=== PATIENT | male | born 1955 | race Caucasian/White ===

== ENCOUNTER → 2016-04-13 | Outpatient (CLI) | payer MEDICARE, BC ==
--- NOTE | 2016-04-13 14:44 | CT ---
EXAMINATION TYPE: CT chest w con DATE OF EXAM: 04/13/2016 2:14 PM COMPARISON: Previous study dated 05/06/2014. HISTORY: Patient has no complaints at time of service. Left upper lobe mass? CT DLP: 641 mGycm Automated exposure control for dose reduction was used. CONTRAST: CT scan of the chest is performed with IV Contrast, patient injected with 100 mL of Omnipaque 300. FINDINGS: There are diffuse changes of emphysema throughout the lungs. The 6.9 x 11.9 mm spiculated m ass in the left upper lobe is virtually resolved with minimal scarring residual. Mass in the left low er lobe measures 10.8 x 18.7 mm. Previously these measured 7 x 14 mm. Small area of spiculation infe rior to this in the posterior medial basal segment of the left lower lobe which previously measured 1 .4 x 7 mm now measures 1.4 x 9 mm. There is calcified granuloma in the left lingula. The right lung appears clear. There is no significant axillary, mediastinal or hilar adenopathy. There are to the aorta is aneurysmal measuring 4.2 cm. At the level of the proximal arch, the aorta m easures 3.8 cm. The proximal descending thoracic aorta measures 3.2 cm. The level of the aortic hiatus, the aorta is normal in caliber measuring 2.8 cm. The heart is not enlarged. There is no pleural or pericardial fluid. There is a stable 16 mm hypodensity within the posterior segment of the right lobe of the liver. Ther e is a simple appearing, 1.3 cm left renal cyst. There is hypertrophic spondylosis within the spine. No bony destructive lesion is seen. IMPRESSION: 1. DIFFUSE EMPHYSEMATOUS CHANGE. 2. RESOLUTION OF THE PATIENT'S LEFT UPPER LOBE PULMONARY NODULE. 3. SLIGHT ENLARGEMENT IN THE SPICULATED LESION IN THE SUPERIOR SEGMENT OF THE LEFT UPPER LOBE. 4. STABLE LESION IN THE POSTERIOR MEDIAL BASAL SEGMENT OF THE LEFT LOWER LOBE. 5. EVIDENCE OF OLD GRANULOMATOUS DISEASE. 6. STABLE HEPATIC CYST. 7. DESCENDING THORACIC AORTIC ANEURYSM. 8. DEGENERATIVE CHANGE WITHIN THE SPINE.
== END | disposition home or self-care (01) ==
LOC: RADCTMAIN 13:13
PROVIDERS: ATTEND Internal Medicine Critical Care Medicine
DX: J43.9 Emphysema, unspecified (principal); I71.2 Thoracic aortic aneurysm, without rupture; R91.8 Other nonspecific abnormal finding of lung field
CPT/HCPCS: 71260; Q9967

== ENCOUNTER → 2016-08-10 | Outpatient (CLI) | payer MEDICARE, BC ==
[2016-08-10 14:30] LABS: ALT 25 U/L (21-72); AST 26 U/L (17-59); Alkaline Phosphatase 79 U/L (38-126); Blood Urea Nitrogen 14 mg/dL (9-20); Non-African American GFR(MDRD) >60 (>60 ml/min/1.73 sqM)
== END | disposition home or self-care (01) ==
LOC: LABWHC1 13:45
PROVIDERS: ATTEND Pain Medicine Pain Medicine
DX: K71.6 Toxic liver disease with hepatitis, not elsewhere classified (principal)
CPT/HCPCS: 36415; 82565; 84075; 84450; 84460; 84520

== ENCOUNTER 2017-01-01 12:53 | Inpatient (IN) | payer MEDICARE, BC ==
[2017-01-01] MEDS ORDERED: SODIUM CHLORIDE 0.9% 1,000 ML IV STA (13:26)
[2017-01-01] MEDS ORDERED: IPRATROPIUM-ALBUTEROL 3 ML NEB INHALATION STA (13:26)
[2017-01-01] MEDS ORDERED: SODIUM CHLORIDE 0.9% 500 ML IV STA (13:26)
[2017-01-01] MEDS ORDERED: methylPREDNISolone SOD SUCCI 125 MG/2 ML VIAL IV STA (13:26)
[2017-01-01] MEDS ORDERED: MAGNESIUM SULFATE-D5W PMX 1 GM in DEXTROSE/WATER 1 100ML.BAG IVPB STA (13:26)
--- NOTE | 2017-01-01 13:38 | ED ---
SOB HPI - General Chief Complaint: Shortness of Breath Stated Complaint: Diff Breathing Time Seen by Provider: 01/01/17 13:00 Source: patient, RN notes reviewed Mode of arrival: wheelchair Limitations: no limitations - History of Present Illness Initial Comments: Is a 61-year-old male with a history of stage IV emphysema the lungs who states he had the onset about 3 days ago of progressively worsening shortness of breath he's had some fever chills decreased appetite. He was on Robitussin-DM outpatient he states now he coughs and can't get anything up he normally has saturations in the mid 90s on oxygen he is been now in the 80s. He denies any overt chest pain no nausea vomiting he just feels very weak and tired. He relates all this starting when his son came home from work 3 days ago and he was very ill with flulike symptoms. He did contact his nuclear security officer today was instructed to come to the emergency department for evaluation and treatment. MD Complaint: shortness of breath - Related Data Home Medications Medication Instructions Recorded Confirmed Fluticasone/Salmeterol [Advair 1 inhalation PO RT-BID 09/08/15 01/01/17 500-50 Diskus] Ipratropium/Albuterol Sulfate 1 puff INHALATION RT-QID 09/08/15 01/01/17 [Combivent Respimat Inhaler] Levothyroxine Sodium [Synthroid] 50 mcg PO DAILY 09/08/15 01/01/17 Losartan/Hydrochlorothiazide 1 tab PO DAILY 09/08/15 01/01/17 [Hyzaar 100-25 Tablet] Oxymorphone HCl [Oxymorphone HCl 60 mg PO Q12HR 09/08/15 01/01/17 ER] Sennosides [Senokot] 8.6 mg PO HS 09/08/15 01/01/17 clonazePAM [KlonoPIN] 0.5 mg PO HS 09/08/15 01/01/17 oxyCODONE HCL [Roxicodone] 30 mg PO Q6HR PRN 09/08/15 01/01/17 predniSONE 10 mg PO DAILY 09/08/15 01/01/17 DULoxetine HCL [Cymbalta] 60 mg PO BID 01/01/17 01/01/17 Gabapentin [Gabapentin] 1,600 mg PO HS 01/01/17 01/01/17 Gabapentin [Gabapentin] 800 mg PO QAM 01/01/17 01/01/17 Ipratropium-Albuterol Nebulize 3 ml INHALATION RT-QID 01/01/17 01/01/17 [Duoneb 0.5 mg-3 mg/3 ml Soln] clonazePAM [KlonoPIN] 0.5 mg PO HS 01/01/17 01/01/17 Allergies Allergy/AdvReac Type Severity Reaction Status Date / Time No Known Allergies Allergy Verified 01/01/17 14:37 Review of Systems ROS Statement: Those systems with pertinent positive or pertinent negative responses have been documented in the HPI. ROS Other: All systems not noted in ROS Statement are negative. 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 pt did not want to do anything about mass when found in April 2015) lack of energy and SOB, use of Home O2 5L/nc History of Any Multi-Drug Resistant Organisms: None Reported Past Surgical History: Back Surgery, Orthopedic Surgery Additional Past Surgical History / Comment(s): right shoulder repair Smoking Status: Current every day smoker Past Alcohol Use History: None Reported Past Drug Use History: None Reported - Past Family History Father Family Medical History: COPD Mother Family Medical History: COPD General Exam - General Exam Comments Initial Comments: This is a well-developed well-nourished awake alert oriented history male he is in obvious respiratory distress with audible wheezing Limitations: no limitations General appearance: alert, in no apparent distress, anxious, in distress Head exam: Present: atraumatic, normocephalic, normal inspection Eye exam: Present: normal appearance, PERRL, EOMI. Absent: scleral icterus, conjunctival injection, periorbital swelling ENT exam: Present: mucous membranes dry Neck exam: Present: normal inspection. Absent: tenderness, meningismus, lymphadenopathy Respiratory exam: Present: respiratory distress, wheezes, accessory muscle use, decreased breath sounds Cardiovascular Exam: Present: regular rate, normal rhythm, normal heart sounds. Absent: systolic murmur, diastolic murmur, rubs, gallop, clicks GI/Abdominal exam: Present: soft, normal bowel sounds. Absent: distended, tenderness, guarding, rebound, rigid Extremities exam: Present: normal inspection, full ROM, normal capillary refill. Absent: tenderness, pedal edema, joint swelling, calf tenderness Back exam: Present: normal inspection Neurological exam: Present: alert, oriented X3, CN II-XII intact Psychiatric exam: Present: normal affect, normal mood Skin exam: Present: warm, dry, intact, normal color. Absent: rash Course Vital Signs 01/01/17 01/01/17 01/01/17 12:56 13:20 13:41 Temperature 100.1 F H Pulse Rate 100 99 90 Respiratory 24 16 Rate Blood Pressure 128/74 141/89 O2 Sat by Pulse 93 L 95 Oximetry 01/01/17 01/01/17 01/01/17 13:50 14:19 15:10 Temperature Pulse Rate 94 88 82 Respiratory 16 16 Rate Blood Pressure 129/77 124/77 O2 Sat by Pulse 95 95 Oximetry 01/01/17 15:26 Temperature Pulse Rate 101 H Respiratory 20 Rate Blood Pressure 116/76 O2 Sat by Pulse 84 L Oximetry - Reevaluation(s) Reevaluation #1: 01/01/17 15:30 The patient did get some relief after the initial treatment he did however did not fair well with walking he did desaturate to 84-85% was elevated heart rate up to about 1:30. He is very dyspneic after this short event. He will be admitted Medical Decision Making - Medical Decision Making I did discuss the findings with the patient he is profoundly dyspneic after minimal exertion even after initial treatment though he does feel better. He will be admitted for inpatient treatment and consultation by his nuclear security officer. I will discuss the case with the hospitalist group on-call. - Lab Data Result diagrams: 01/01/17 13:16 01/01/17 13:16 Lab Results 01/01/17 01/01/17 01/01/17 Range/Units 13:16 13:16 13:16 WBC 10.4 (3.8-10.6) k/uL RBC 5.13 (4.30-5.90) m/uL Hgb 15.2 (13.0-17.5) gm/dL Hct 46.8 (39.0-53.0) % MCV 91.2 (80.0-100.0) fL MCH 29.7 (25.0-35.0) pg MCHC 32.6 (31.0-37.0) g/dL RDW 15.6 H (11.5-15.5) % Plt Count 313 (150-450) k/uL Neutrophils % 81 % Lymphocytes % 11 % Monocytes % 5 % Eosinophils % 2 % Basophils % 0 % Neutrophils # 8.5 H (1.3-7.7) k/uL Lymphocytes # 1.1 (1.0-4.8) k/uL Monocytes # 0.5 (0-1.0) k/uL Eosinophils # 0.2 (0-0.7) k/uL Basophils # 0.0 (0-0.2) k/uL PT (9.0-12.0) sec INR (<1.2) APTT (22.0-30.0) sec Sodium 138 (137-145) mmol/L Potassium 4.2 (3.5-5.1) mmol/L Chloride 97 L (98-107) mmol/L Carbon Dioxide 31 H (22-30) mmol/L Anion Gap 10 mmol/L BUN 12 (9-20) mg/dL Creatinine 0.83 (0.66-1.25) mg/dL Est GFR (MDRD) Af Amer >60 (>60 ml/min/1.73 sqM) Est GFR (MDRD) Non-Af >60 (>60 ml/min/1.73 sqM) Glucose 118 H (74-99) mg/dL Calcium 9.7 (8.4-10.2) mg/dL Magnesium 1.9 (1.6-2.3) mg/dL Total Bilirubin 0.3 (0.2-1.3) mg/dL AST 28 (17-59) U/L ALT 32 (21-72) U/L Alkaline Phosphatase 73 (38-126) U/L Total Creatine Kinase 89 (55-170) U/L CK-MB (CK-2) 1.9 (0.0-2.4) ng/mL CK-MB (CK-2) Rel Index 2.1 Troponin I <0.012 (0.000-0.034) ng/mL NT-Pro-B Natriuret Pep pg/mL Total Protein 7.6 (6.3-8.2) g/dL Albumin 4.5 (3.5-5.0) g/dL Influenza Type A RNA (Not Detectd) Influenza Type B (PCR) (Not Detectd) 01/01/17 01/01/17 01/01/17 Range/Units 13:16 13:16 14:12 WBC (3.8-10.6) k/uL RBC (4.30-5.90) m/uL Hgb (13.0-17.5) gm/dL Hct (39.0-53.0) % MCV (80.0-100.0) fL MCH (25.0-35.0) pg MCHC (31.0-37.0) g/dL RDW (11.5-15.5) % Plt Count (150-450) k/uL Neutrophils % % Lymphocytes % % Monocytes % % Eosinophils % % Basophils % % Neutrophils # (1.3-7.7) k/uL Lymphocytes # (1.0-4.8) k/uL Monocytes # (0-1.0) k/uL Eosinophils # (0-0.7) k/uL Basophils # (0-0.2) k/uL PT 10.0 (9.0-12.0) sec INR 1.0 (<1.2) APTT 23.3 (22.0-30.0) sec Sodium (137-145) mmol/L Potassium (3.5-5.1) mmol/L Chloride (98-107) mmol/L Carbon Dioxide (22-30) mmol/L Anion Gap mmol/L BUN (9-20) mg/dL Creatinine (0.66-1.25) mg/dL Est GFR (MDRD) Af Amer (>60 ml/min/1.73 sqM) Est GFR (MDRD) Non-Af (>60 ml/min/1.73 sqM) Glucose (74-99) mg/dL Calcium (8.4-10.2) mg/dL Magnesium (1.6-2.3) mg/dL Total Bilirubin (0.2-1.3) mg/dL AST (17-59) U/L ALT (21-72) U/L Alkaline Phosphatase (38-126) U/L Total Creatine Kinase (55-170) U/L CK-MB (CK-2) (0.0-2.4) ng/mL CK-MB (CK-2) Rel Index Troponin I (0.000-0.034) ng/mL NT-Pro-B Natriuret Pep 34 pg/mL Total Protein (6.3-8.2) g/dL Albumin (3.5-5.0) g/dL Influenza Type A RNA Not Detected (Not Detectd) Influenza Type B (PCR) Not Detected (Not Detectd) - EKG Data -: EKG Interpreted by In EKG shows normal: sinus rhythm (Sinus rhythm rate of 98 WI interval 144 QRS 82 QT since QTC of 322/411 nonspecific changes.) - Radiology Data Radiology results: report reviewed (Imaging shows no acute findings.), image reviewed Critical Care Time Critical Care Time: Yes Critical Care Time: 31 minutes of critical care time which includes initial presentation with history physical labs x-rays several re-evaluations the patient responsive therapy discussion with the admitting physicians as. Review of old charting was available. Inpatient orders and documentation of the above. Disposition Clinical Impression: Acute exacerbation of chronic obstructive airways disease, Adult respiratory distress syndrome, Hypoxemia, Febrile illness, acute Disposition: ADMITTED IP TO THIS HOSP Condition: Stable Referrals: Melva Bear MD [Primary Care Provider] - 1-2 days
[2017-01-01 13:47] LABS: Basophils % (A) 0 %; CH 29.5; CHCM 32.5; Eosinophils # (A) 0.2 k/uL (0-0.7); Eosinophils % (A) 2 %; HCT 46.8 % (39.0-53.0); HDW 2.32; HGB 15.2 gm/dL (13.0-17.5); Luc # (Auto) 0.08; Luc % (Auto) 1; Lymphocytes # (A) 1.1 k/uL (1.0-4.8); Lymphocytes % (A) 11 %; MCH 29.7 pg (25.0-35.0); MCHC 32.6 g/dL (31.0-37.0); MCV 91.2 fL (80.0-100.0); Mean Platelet Volume 7.4; Monocytes # (A) 0.5 k/uL (0-1.0); Monocytes % (A) 5 %; Neutrophils # (A) 8.5 k/uL (1.3-7.7); Neutrophils % (A) 81 %; RBC 5.13 m/uL (4.30-5.90); RDW 15.6 % (11.5-15.5); WBC 10.4 k/uL (3.8-10.6); WBC (Perox) 10.49
[2017-01-01 13:50] LABS: ALT 32 U/L (21-72); AST 28 U/L (17-59); Alkaline Phosphatase 73 U/L (38-126); Anion Gap 10 mmol/L; Blood Urea Nitrogen 12 mg/dL (9-20); Calcium 9.7 mg/dL (8.4-10.2); Carbon Dioxide 31 mmol/L (22-30); Chloride 97 mmol/L (98-107); Glucose 118 mg/dL (74-99); Magnesium 1.9 mg/dL (1.6-2.3); Non-African American GFR(MDRD) >60 (>60 ml/min/1.73 sqM); Potassium 4.2 mmol/L (3.5-5.1); Sodium 138 mmol/L (137-145); Total Bilirubin 0.3 mg/dL (0.2-1.3); Total Protein 7.6 g/dL (6.3-8.2)
[2017-01-01 13:54] LABS: Partial Thromboplastin Time 23.3 sec (22.0-30.0)
[2017-01-01 13:56] LABS: Creatine Kinase 89 U/L (55-170)
[2017-01-01 14:09] LABS: Creatine Kinase MB 1.9 ng/mL (0.0-2.4); Troponin I <0.012 ng/mL (0.000-0.034)
--- NOTE | 2017-01-01 14:22 | XR ---
EXAMINATION TYPE: XR chest 2V DATE OF EXAM: 01/01/2017 COMPARISON: 03/15/2016 HISTORY: Shortness of breath TECHNIQUE: Frontal and lateral views of the chest are obtained. FINDINGS: Scattered senescent parenchymal changes noted. Hyperinflation compatible with COPD. No evidence for infiltrate. No evidence for atelectasis. Heart size is stable. Granuloma left lower lobe. Mediastinal structures are stable and grossly unremarkable. No evidence for hilar prominence. Degenerative changes dorsal spine. IMPRESSION: 1. No evidence for acute pulmonary disease.
[2017-01-01] MEDS ORDERED: NALOXONE 0.4 MG/ML 1 ML VIAL IV PRN ×2 (15:41→17:34)
[2017-01-01] MEDS ORDERED: SODIUM CHLORIDE 0.9% 1,000 ML IV SCH (15:45)
[2017-01-01] MEDS ORDERED: IPRATROPIUM-ALBUTEROL 3 ML NEB INHALATION SCH (16:00)
[2017-01-01] MEDS: NICOTINE 21MG/24HR PATCH TRANSDERM SCH (16:12)
[2017-01-01] MEDS: OXYMORPHONE HCL 5 MG TABLET PO SCH ×2 (16:44→21:39)
[2017-01-01] MEDS: methylPREDNISolone SOD SUCCI 125 MG/2 ML VIAL IV SCH ×2 (16:45→23:53)
[2017-01-01] MEDS ORDERED: ACETAMINOPHEN TAB 325 MG TAB PO PRN (17:34)
[2017-01-01] MEDS ORDERED: ONDANSETRON 4 MG/2 ML VIAL IVP PRN (17:34)
[2017-01-01] MEDS: INSULIN LISPRO (humaLOG) 300 UNIT/3 ML VIAL SQ SCH ×2 (17:45→21:41)
[2017-01-01] MEDS: SODIUM CHLORIDE 0.9% 1,000 ML IV SCH (17:51)
[2017-01-01] MEDS ORDERED: IPRATROPIUM-ALBUTEROL 3 ML NEB INHALATION PRN (18:00)
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
[2017-01-01] MEDS: IPRATROPIUM-ALBUTEROL 3 ML NEB INHALATION SCH (19:42)
[2017-01-01] MEDS: SYMBICORT 160-4.5 MCG INHALER INHALATION SCH (19:42)
[2017-01-01] MEDS: DOXYCYCLINE 50 MG CAP PO SCH (20:22)
[2017-01-01] MEDS: SENNOSIDES 8.6 MG TAB PO SCH (20:22)
[2017-01-01] MEDS: GABAPENTIN 400 MG CAP PO SCH (20:22)
[2017-01-01] MEDS: DULoxetine HCL 60 MG CAPSULE.DR PO SCH (20:22)
[2017-01-01 20:54] LABS: Glucose,Whole Blood 130 mg/dL (75-99)
[2017-01-01] MEDS ORDERED: clonazePAM 0.5 MG TAB PO SCH (21:00)
[2017-01-01] MEDS: clonazePAM 0.5 MG TAB PO SCH (21:41)
[2017-01-02] MEDS: IPRATROPIUM-ALBUTEROL 3 ML NEB INHALATION SCH ×6 (01:15→19:20)
[2017-01-02] MEDS: OXYMORPHONE HCL 5 MG TABLET PO SCH ×6 (05:22→20:07)
[2017-01-02] MEDS: methylPREDNISolone SOD SUCCI 125 MG/2 ML VIAL IV SCH ×3 (06:01→18:04)
[2017-01-02] MEDS: LEVOTHYROXINE 50 MCG TAB PO SCH (06:01)
[2017-01-02 07:04] LABS: Glucose,Whole Blood 113 mg/dL (75-99)
[2017-01-02] MEDS: SYMBICORT 160-4.5 MCG INHALER INHALATION SCH ×2 (07:05→19:20)
[2017-01-02] MEDS: INSULIN LISPRO (humaLOG) 300 UNIT/3 ML VIAL SQ SCH ×4 (07:27→21:12)
[2017-01-02] MEDS: NICOTINE 21MG/24HR PATCH TRANSDERM SCH (07:51)
[2017-01-02] MEDS: DULoxetine HCL 60 MG CAPSULE.DR PO SCH ×2 (07:51→21:10)
[2017-01-02] MEDS: DOXYCYCLINE 50 MG CAP PO SCH ×2 (07:52→21:10)
[2017-01-02] MEDS: LOSARTAN-HCTZ 50-12.5 MG 1 EACH TAB PO SCH (07:52)
[2017-01-02] MEDS: ENOXAPARIN 40 MG/0.4 ML SYRINGE SQ SCH (07:52)
[2017-01-02] MEDS: GABAPENTIN 400 MG CAP PO SCH ×2 (07:52→21:09)
[2017-01-02 08:35] LABS: Basophils % (A) 0 %; CHCM 31.8; Eosinophils # (A) 0.1 k/uL (0-0.7); Eosinophils % (A) 1 %; HCT 47.5 % (39.0-53.0); HDW 2.33; HGB 15.4 gm/dL (13.0-17.5); Luc # (Auto) 0.05; Luc % (Auto) 0; Lymphocytes # (A) 1.3 k/uL (1.0-4.8); Lymphocytes % (A) 9 %; MCH 30.6 pg (25.0-35.0); MCHC 32.4 g/dL (31.0-37.0); MCV 94.7 fL (80.0-100.0); Monocytes # (A) 0.8 k/uL (0-1.0); Monocytes % (A) 6 %; Neutrophils # (A) 11.7 k/uL (1.3-7.7); Neutrophils % (A) 84 %; RBC 5.02 m/uL (4.30-5.90); RDW 13.9 % (11.5-15.5); WBC (Perox) 12.63
[2017-01-02 08:51] LABS: Anion Gap 7 mmol/L; Blood Urea Nitrogen 17 mg/dL (9-20); Calcium 9.2 mg/dL (8.4-10.2); Carbon Dioxide 33 mmol/L (22-30); Chloride 99 mmol/L (98-107); Glucose 119 mg/dL (74-99); Magnesium 2.1 mg/dL (1.6-2.3); Non-African American GFR(MDRD) >60 (>60 ml/min/1.73 sqM); Phosphorus 4.2 mg/dL (2.5-4.5); Potassium 4.9 mmol/L (3.5-5.1); Sodium 139 mmol/L (137-145)
[2017-01-02] MEDS ORDERED: LEVOFLOXACIN 500 MG TAB PO SCH (09:00)
--- NOTE | 2017-01-02 10:56 | P.PN ---
Subjective Progress Note Date: 01/02/17 Principal diagnosis: Shortness of breath The patient is still feeling tight in the chest, he feels that secretions stuck in his chest and he cannot bring them up. No chest pain, no fevers or chills. He has not tried to walk out of bed as of yet. Objective - Vital Signs Vital signs: Vital Signs Temp 97.0 F L 01/02/17 07:00 Pulse 80 01/02/17 07:19 Resp 18 01/02/17 07:00 BP 120/71 01/02/17 07:00 Pulse Ox 96 01/02/17 07:08 Intake & Output 01/01/17 01/02/17 01/02/17 18:59 06:59 18:59 Weight 83.915 kg Other: Voiding Method Toilet # Voids 1 1 1 - Exam Constitutional: No acute distress, conversant, pleasant Eyes:Anicteric sclerae, moist conjunctiva, no lid-lag, PERRLA, ENMT: Oropharynx clear, no erythema, exudates Neck: Supple, FROM, no masses, or JVD, No carotid bruits, No thyromegaly Lungs: Bilateral wheezing and rhonchi, diminished breath sounds towards the chest, Normal respiratory effort, no accessory muscle use Cardiovascular: Heart regular in rate and rhythm, No murmurs, gallops, or rubs, No peripheral edema Abdominal: Soft, Nontender, no guarding, rebound or rigidity, Normoactive bowel sounds, No hepatomegaly, No splenomegaly, No palpable mass Skin: Normal temperature, tone, texture, turgor, no induration, No subcutaneous nodules, No rash, lesions, No ulcers Extremities: No digital cyanosis, No clubbing, Pedal pulses intact and symmetrical, Radial pulses intact and symmetrical, No calf tenderness Psychiatric: Alert and oriented to person, place and time, appropriate affect, intact judgement Neuro: Muscles Strength 5/5 in all 4 extremities, Sensation to light touch grossly present throughout, Cranial nerves II-XII grossly intact, no focal sensory deficits - Labs CBC & Chem 7: 01/02/17 08:07 01/02/17 08:07 Labs: Abnormal Lab Results - Last 24 Hours (Table) 01/01/17 01/01/17 01/01/17 Range/Units 13:16 13:16 20:49 WBC (3.8-10.6) k/uL RDW 15.6 H (11.5-15.5) % Neutrophils # 8.5 H (1.3-7.7) k/uL Chloride 97 L (98-107) mmol/L Carbon Dioxide 31 H (22-30) mmol/L Glucose 118 H (74-99) mg/dL POC Glucose (mg/dL) 130 H (75-99) mg/dL 01/02/17 01/02/17 01/02/17 Range/Units 07:01 08:07 08:07 WBC 14.0 H (3.8-10.6) k/uL RDW (11.5-15.5) % Neutrophils # 11.7 H (1.3-7.7) k/uL Chloride (98-107) mmol/L Carbon Dioxide 33 H (22-30) mmol/L Glucose 119 H (74-99) mg/dL POC Glucose (mg/dL) 113 H (75-99) mg/dL Assessment and Plan Plan: #1 Acute exacerbation of chronic obstructive pulmonary disease/acute hypoxic respiratory failure/Acute bronchitis: Supplemental oxygen to keep O2 saturation above 90% Contine DuoNeb every 6 hours and every 2 hours when necessary Continue Solu-Medrol 60 mg every 6 hours Continue Doxycycline 100 mg by mouth twice a day Pro-calcitonin pending Labs reviewed, we'll recheck in the morning #2 Hypothyroidism/Benign hypertension/Chronic back pain/GERD: All stable, continue current home medications #3 Smoking: Counseled to quit Nicotine patch #4 DVT prophylaxis: Lovenox subcu
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
[2017-01-02 11:15] VITALS: BMI 28.1
[2017-01-02 11:29] LABS: Glucose,Whole Blood 91 mg/dL (75-99)
[2017-01-02] MEDS: guaiFENesin-Coden 100-10MG/5ML 10 ML CUP PO SCH ×3 (11:40→21:30)
[2017-01-02] MEDS: ACETYLCYSTEINE 800 MG/4 ML VIAL INHALATION SCH ×2 (15:47→19:20)
[2017-01-02] MEDS: SODIUM CHLORIDE 0.9% 1,000 ML IV SCH (17:03)
[2017-01-02 17:17] LABS: Glucose,Whole Blood 123 mg/dL (75-99)
[2017-01-02 20:35] LABS: Glucose,Whole Blood 161 mg/dL (75-99)
[2017-01-02] MEDS: SENNOSIDES 8.6 MG TAB PO SCH (21:10)
[2017-01-02] MEDS: clonazePAM 0.5 MG TAB PO SCH (21:23)
[2017-01-03] MEDS: IPRATROPIUM-ALBUTEROL 3 ML NEB INHALATION SCH ×4 (00:17→12:05)
[2017-01-03] MEDS: methylPREDNISolone SOD SUCCI 125 MG/2 ML VIAL IV SCH ×3 (01:05→11:15)
[2017-01-03] MEDS: OXYMORPHONE HCL 5 MG TABLET PO SCH ×3 (01:05→07:29)
[2017-01-03] MEDS: LEVOTHYROXINE 50 MCG TAB PO SCH (06:36)
[2017-01-03 07:23] LABS: Glucose,Whole Blood 110 mg/dL (75-99)
[2017-01-03] MEDS: INSULIN LISPRO (humaLOG) 300 UNIT/3 ML VIAL SQ SCH ×2 (07:28→11:48)
[2017-01-03 07:43] VITALS: BP 121/65; RESP 16; TEMP 97.3
[2017-01-03] MEDS: ACETYLCYSTEINE 800 MG/4 ML VIAL INHALATION SCH ×2 (08:01→12:05)
[2017-01-03] MEDS: SYMBICORT 160-4.5 MCG INHALER INHALATION SCH (08:02)
[2017-01-03 08:07] VITALS: PULSE 88
[2017-01-03] MEDS: NICOTINE 21MG/24HR PATCH TRANSDERM SCH (08:25)
[2017-01-03] MEDS: guaiFENesin-Coden 100-10MG/5ML 10 ML CUP PO SCH (08:25)
[2017-01-03] MEDS: LOSARTAN-HCTZ 50-12.5 MG 1 EACH TAB PO SCH (08:25)
[2017-01-03] MEDS: ENOXAPARIN 40 MG/0.4 ML SYRINGE SQ SCH (08:27)
[2017-01-03] MEDS: DOXYCYCLINE 50 MG CAP PO SCH (08:27)
[2017-01-03] MEDS: DULoxetine HCL 60 MG CAPSULE.DR PO SCH (08:27)
[2017-01-03] MEDS: GABAPENTIN 400 MG CAP PO SCH (08:27)
[2017-01-03 09:20] LABS: Basophils % (A) 0 %; CH 30.2; CHCM 31.7; Eosinophils # (A) 0.1 k/uL (0-0.7); Eosinophils % (A) 1 %; HCT 47.2 % (39.0-53.0); HDW 2.28; HGB 14.5 gm/dL (13.0-17.5); Luc # (Auto) 0.06; Luc % (Auto) 0; Lymphocytes # (A) 0.9 k/uL (1.0-4.8); Lymphocytes % (A) 6 %; MCH 29.5 pg (25.0-35.0); MCHC 30.8 g/dL (31.0-37.0); MCV 95.7 fL (80.0-100.0); Mean Platelet Volume 6.7; Monocytes # (A) 0.4 k/uL (0-1.0); Monocytes % (A) 3 %; Neutrophils # (A) 12.5 k/uL (1.3-7.7); Neutrophils % (A) 89 %; RBC 4.93 m/uL (4.30-5.90); RDW 14.1 % (11.5-15.5); WBC 14.1 k/uL (3.8-10.6); WBC (Perox) 14.11
[2017-01-03 09:33] LABS: Anion Gap 11 mmol/L; Blood Urea Nitrogen 17 mg/dL (9-20); Calcium 9.6 mg/dL (8.4-10.2); Carbon Dioxide 29 mmol/L (22-30); Chloride 99 mmol/L (98-107); Glucose 172 mg/dL (74-99); Non-African American GFR(MDRD) >60 (>60 ml/min/1.73 sqM); Potassium 4.3 mmol/L (3.5-5.1); Sodium 139 mmol/L (137-145)
[2017-01-03] MEDS ORDERED: MELATONIN 5 MG TABLET PO PRN (09:33)
[2017-01-03] MEDS ORDERED: DOCUSATE 100 MG CAP PO SCH (09:45)
--- NOTE | 2017-01-03 10:16 | P.PN ---
Subjective Progress Note Date: 01/03/17 Principal diagnosis: Acute on chronic hypoxic respiratory failure due to COPD exacerbation with tracheobronchitis. This is a 61-year-old white male follows with Dr. Villatoro in our office for his history severe oxygen dependent COPD, GOLD stage IV. His last PFT from 2015 showed FEV1 of 24% of predicted value, and DLCO of 39, consistent with severe airway obstruction and reduced diffusing capacity. Presented to the emergency room on 01/01/2017 at approximately 1 PM with complaints of severe worsening shortness of breath, chest tightness, fever and chills and generalized weakness. His symptoms started during the weekend, he progressively worse. Did have a sick contact, his son has upper respiratory symptoms were about a week. Patient continues to smoke, but 10-12 cigarettes a day, carries a 48-[id number] smoking history. Patient was initially able to bring up some white phlegm, complaining of chest congestion, took some Robitussin-DM which subsequently dried out his secretions and made it difficult for for him to expectorate. He called Dr Villatoro's office, and due to his severe hypoxia, respiratory distress was told to come to the emergency room. On presentation to the emergency room, pulse oximetry revealed O2 saturations in the 80s. Chest x-ray from 01/01/2017 shows no evidence of of infiltrate or any other acute pulmonary disease. Influenza A and B came back negative. He was started on doxycycline, DuoNeb's and Symbicort as well as IV steroids, and he reports significant improvement in his level of dyspnea today. Of note, patient history of a suspicious lesion in the left upper lobe has been followed by Dr. Villatoro for some time, however biopsy was difficult to perform due to to patient's severe COPD. PET scan on 09/25/2015 no convincing evidence of malignancy and slightly more prominent sub-centimeter spiculated nodule in the left lower lung. Follow-up CT from 04/13/2016 showed resolution of the patient' s left upper lobe pulmonary nodule right enlargement in the spiculated lesion in the superior segment of the left upper lobe. It was agreed to continue watching the lesion with CAT scans. Patient is currently on Advair discus 500/ 50, DuoNeb, Combivent respimat, and maintenance dose prednisone 10 mg daily for his COPD. He wears a Trilogy ventilator at night, with 4 L of oxygen. Patient has severe chronic back pain elated to generative disc disease, but he is not a surgical candidate due to his severe lung disease. Being treated medically by a pain specialist in [place]. Requesting information on hospice, as it is difficult for him to manage multiple doctors appointments due to his severe chronic health problems, and he is hoping to be able to achieve better pain control under the hospice care. On 01/03/2017 patient seen in follow-up. States he could not fall asleep last night, thinks this may be due to steroids. Appears tired, but no signs of worsening dyspnea. Breathing is comfortable at rest, continues on 4 L oxygen with O2 sat at 91%. Lung sounds diminished, but no wheezes noted. No rhonchi, no rales. From pulmonary standpoint he stable for discharge today on outpatient course of doxycycline, nebulized treatments and Symbicort. Objective - Vital Signs Vital signs: Vital Signs Temp 97.3 F L 01/03/17 07:00 Pulse 88 01/03/17 08:23 Resp 16 01/03/17 07:00 BP 121/65 01/03/17 07:00 Pulse Ox 91 L 01/03/17 07:00 Intake & Output 01/02/17 01/03/17 01/03/17 18:59 06:59 18:59 Intake Total 600 Balance 600 Weight 83.915 kg Intake: Oral 600 Other: Voiding Method Toilet Toilet # Voids 2 2 - Exam GENERAL EXAM: Alert, active, comfortable in no apparent distress. HEAD: Normocephalic. EYES: Normal reaction of pupils, equal size. NOSE: Clear with pink turbinates. THROAT: No erythema or exudates. NECK: No masses, no JVD. CHEST: No chest wall deformity. LUNGS: Lung sounds diminished, no wheezes, no rhonchi no rales. CVS: S1 and S2 normal with no audible mumurs, regular rhythm. ABDOMEN: No hepatosplenomegaly, normal bowel sounds, no guarding or rigidity. SPINE: No scoliosis or deformity SKIN: No rashes CENTRAL NERVOUS SYSTEM: No focal deficits, tone is normal in all 4 extremities. - Labs CBC & Chem 7: 01/03/17 09:07 01/03/17 09:07 Labs: Abnormal Lab Results - Last 24 Hours (Table) 01/02/17 01/02/17 01/03/17 Range/Units 17:13 20:31 07:02 WBC (3.8-10.6) k/uL MCHC (31.0-37.0) g/dL Neutrophils # (1.3-7.7) k/uL Lymphocytes # (1.0-4.8) k/uL Glucose (74-99) mg/dL POC Glucose (mg/dL) 123 H 161 H 110 H (75-99) mg/dL 01/03/17 01/03/17 Range/Units 09:07 09:07 WBC 14.1 H (3.8-10.6) k/uL MCHC 30.8 L (31.0-37.0) g/dL Neutrophils # 12.5 H (1.3-7.7) k/uL Lymphocytes # 0.9 L (1.0-4.8) k/uL Glucose 172 H (74-99) mg/dL POC Glucose (mg/dL) (75-99) mg/dL Microbiology - Last 24 Hours (Table) 01/01/17 13:16 Blood Culture - Preliminary Blood No Growth after 24 hours Assessment and Plan Plan: Assessment: #1. Acute on chronic hypoxic respiratory failure due to COPD exacerbation with tracheobronchitis #2. Severe end-stage COPD, GOLD stage IV, with FEV1 24% of the predicted value and DLCO of 39 based on PFT from 01/13/2016, oxygen dependent chronic respiratory failure, uses Trilogy ventilator at bedtime and supplemental oxygen at 4 L/m per nasal cannula during the day. #3. History of asthma #4. History of Left upper lobe suspicious mass with pulmonary nodules, PET scan 09/25/2015 negative for convincing evidence of malignancy. Subcentimeter speculated nodules in the left lower lung are being monitored by CT scans by the primary educational speech language clinician Dr. Villatoro every 3-[address] of chest from showed resolution of the left upper lobe pulmonary nodule and slight enlargement in the speculated lesion in the superior segment of the left upper lobe, as well as stable lesion in the posterior medial basal segment of the left lower lobe. #5. Chronic severe back pain due to degenerative disc disease, currently in pain management and treated medically. Not a surgical candidate due to advanced lung disease #6. Gastroesophageal reflux disease #7. Hypertension #8. Hypothyroidism allograft #9. Osteoarthritis Plan: Patient is doing well, lung sounds are diminished but no wheezing, no rhonchi or rales auscultated. Patient is able to go home today from pulmonary standpoint on outpatient course of prednisone taper, Doxycycline, Symbicort and DuoNeb. Has significantly improved since admission. Increase activity as tolerated on portable oxygen. Follow-up with Dr. Villatoro in 10 days. I performed a history & physical examination of the patient and discussed their management with my nurse practitioner, Alyssa Alexis. I reviewed the nurse practitioner's note and agree with the documented findings and plan of care. Diminished sounds, no significant wheezing or rhonchi. Patient reports some improvement in his status. I attest the documentation by the nurse practitioner Time with Patient: Less than 30
--- NOTE | 2017-01-03 10:59 | P.DS ---
Providers Date of admission: 01/01/17 15:33 Expected date of discharge: 01/03/17 Attending physician: Eugenie Franco MD Consults: 01/01/17 15:33 Consult Physician Routine Consulting Provider: Justin Villatoro Consult Reason/Comments: COPD with exacerbation, febrile illness Do you want consulting provider notified?: Yes Primary care physician: Melva Bear - Discharge Diagnosis(es) (1) Acute exacerbation of chronic obstructive airways disease Current Visit: Yes Status: Acute (2) Acute and chronic respiratory failure with hypoxia Current Visit: Yes Status: Acute (3) Pulmonary nodule Known and being followed by Dr. Villatoro Current Visit: Yes Status: Chronic (4) HTN (hypertension) Current Visit: Yes Status: Chronic (5) Chronic back pain Current Visit: Yes Status: Chronic (6) Tobacco abuse Current Visit: Yes Status: Chronic (7) Febrile illness, acute Current Visit: Yes Status: Resolved Hospital Course: Patient is a 61-year-old male with a history of severe end-stage COPD GOLD IV with FEV1 of 24%, chronic back pain on chronic narcotic therapy, and chronic hypoxic respiratory failure who presented to the ER with complaints of worsening shortness of breath. In the ER he underwent an extensive evaluation. His oxygen dropped to the mid 80s on his baseline 4 L of oxygen. Chest x-ray was negative and laboratory analysis was essentially unremarkable. He was given he was given bronchodilators and IV steroids. With his hypoxia was determined that he would benefit from admission to the general medical floor. He was maintained on IV steroids, bronchodilators, and antibiotics were initiated. Pulmonary was consult agreement with current course of therapy. Unfortunately, he did not bring his triology vent to the hospital for nighttime use. He did have a rapid improvement in his symptoms with IV steroid use. Him and his also requested information on hospice which they were provided with. Patient is unsure about what he would like to sign-on with hospice. He was seen by pulmonary in June felt his symptoms were at baseline. He was determined stable for discharge home. He will complete a five-day course of doxycycline, maintain on his bronchodilators, and complete a 14 day prednisone taper. He will then resume his typical 10 mg of prednisone dose. He was also having difficulty sleeping and melatonin was recommended until he completes his steroid taper. Patient seen and examined at bedside. Breathing better and appears back to baseline. Increased back pain secondary to our beds. Insomnia. Feeling much better overall. Did meet with hospice yesterday, and is considering his options. Vital signs reviewed and stable. General: non toxic, no distress, appears at stated age Derm: no rashes, no lesions Head: atraumatic, normocephalic, symmetric Eyes: EOMI, no lid lag, anicteric sclera ENT: no post nasal drip, no thrush Mouth: no lip lesion, mucus membranes moist Cardiovascular: S1S2 reg, no murmur, positive posterior tibial pulse bilateral, Lungs: Decreased breath sounds bilateral bases, no rhonchi, no rales , no accessory muscle use Abdominal: soft, nontender to palpation, no guarding, no appreciable organomegaly Ext: no gross muscle atrophy, no edema, no contractures Neuro: CN II-XI grossly intact, no focal neuro deficits Psych: Alert, oriented, appropriate affect A total of 40 minutes of time were spent preparing this complex discharge summary . Pertinent Studies: None Procedures: None Patient Condition at Discharge: Stable Plan - Discharge Summary Discharge Rx Participant: Yes New Discharge Prescriptions: New Doxycycline [Vibramycin] 100 mg PO BID 3 Days #6 cap Melatonin 5 mg PO HS PRN tablet PRN Reason: Insomnia predniSONE 0 mg PO DIRECTED #30 tab Continue oxyCODONE HCL [Roxicodone] 30 mg PO Q6HR PRN PRN Reason: Pain Levothyroxine Sodium [Synthroid] 50 mcg PO DAILY predniSONE 10 mg PO DAILY Oxymorphone HCl [Oxymorphone HCl ER] 60 mg PO Q12HR Ipratropium/Albuterol Sulfate [Combivent Respimat Inhaler] 1 puff INHALATION RT-QID Losartan/Hydrochlorothiazide [Hyzaar 100-25 Tablet] 1 tab PO DAILY Sennosides [Senokot] 8.6 mg PO HS clonazePAM [KlonoPIN] 0.5 mg PO HS Gabapentin 1,600 mg PO HS Gabapentin 800 mg PO QAM DULoxetine HCL [Cymbalta] 60 mg PO BID Ipratropium-Albuterol Nebulize [Duoneb 0.5 mg-3 mg/3 ml Soln] 3 ml INHALATION RT-QID Fluticasone/Salmeterol [Advair 500-50 Diskus] 1 inhalation PO RT-BID #1 inhaler Discontinued clonazePAM [KlonoPIN] 0.5 mg PO HS Discharge Medication List Ipratropium/Albuterol Sulfate [Combivent Respimat Inhaler] 1 puff INHALATION RT- QID 09/08/15 [History] Levothyroxine Sodium [Synthroid] 50 mcg PO DAILY 09/08/15 [History] Losartan/Hydrochlorothiazide [Hyzaar 100-25 Tablet] 1 tab PO DAILY 09/08/15 [ History] Oxymorphone HCl [Oxymorphone HCl ER] 60 mg PO Q12HR 09/08/15 [History] Sennosides [Senokot] 8.6 mg PO HS 09/08/15 [History] clonazePAM [KlonoPIN] 0.5 mg PO HS 09/08/15 [History] oxyCODONE HCL [Roxicodone] 30 mg PO Q6HR PRN 09/08/15 [History] predniSONE 10 mg PO DAILY 09/08/15 [History] DULoxetine HCL [Cymbalta] 60 mg PO BID 01/01/17 [History] Gabapentin 1,600 mg PO HS 01/01/17 [History] Gabapentin 800 mg PO QAM 01/01/17 [History] Ipratropium-Albuterol Nebulize [Duoneb 0.5 mg-3 mg/3 ml Soln] 3 ml INHALATION RT -QID 01/01/17 [History] Doxycycline [Vibramycin] 100 mg PO BID 3 Days #6 cap 01/03/17 [Rx] Fluticasone/Salmeterol [Advair 500-50 Diskus] 1 inhalation PO RT-BID #1 inhaler 01/03/17 [Rx] Melatonin 5 mg PO HS PRN tablet 01/03/17 [Rx] predniSONE 0 mg PO DIRECTED #30 tab 01/03/17 [Rx] Follow up Appointment(s)/Referral(s): Melva Bear MD [Primary Care Provider] - 01/09/17 1:45 pm Justin Villatoro DO [Doctor of Osteopathic Medicine] - 01/05/17 3:00 pm Patient Instructions/Handouts: Acute Respiratory Distress Syndrome (GEN), COPD (Chronic Obstructive Pulmonary Disease) (DC), Hypoxemia (DC) Activity/Diet/Wound Care/Special Instructions: May use Melatonin at home for sleep as needed Once Prednisone taper (20mg tablets) is completed please resume prior Prednisone 10mg daily prescription. Diet- regular, high protein Activity as tolerated. Discharge Disposition: HOME SELF-CARE
[2017-01-03] MEDS: SODIUM CHLORIDE 0.9% 1,000 ML IV SCH (11:05)
[2017-01-03 11:47] LABS: Glucose,Whole Blood 101 mg/dL (75-99)
[2017-01-03] MEDS ORDERED: OXYMORPHONE HCL 5 MG TABLET PO SCH ×2 (12:00→21:00)
== END 2017-01-03 13:54 | disposition home or self-care (01) | DRG 190 ==
LOC: EC 12:53 → 4MS4W 15:33
PROVIDERS: ADMIT Internal Medicine; ATTEND Internal Medicine
DX: J44.1 Chronic obstructive pulmonary disease with (acute) exacerbation (principal); J96.21 Acute and chronic respiratory failure with hypoxia; Z99.81 Dependence on supplemental oxygen; J20.9 Acute bronchitis, unspecified; E03.9 Hypothyroidism, unspecified; J44.0 Chronic obstructive pulmonary disease with (acute) lower respiratory infection; I10 Essential (primary) hypertension; F17.210 Nicotine dependence, cigarettes, uncomplicated; G47.00 Insomnia, unspecified; G89.29 Other chronic pain; K21.9 Gastro-esophageal reflux disease without esophagitis; M19.90 Unspecified osteoarthritis, unspecified site; M54.9 Dorsalgia, unspecified; R91.1 Solitary pulmonary nodule; Z79.891 Long term (current) use of opiate analgesic; Z79.52 Long term (current) use of systemic steroids; Z79.899 Other long term (current) drug therapy
CPT/HCPCS: 36415; 71020; 80048; 80053; 82550; 82553; 83735; 83880; 84100; 84145; 84484; 85025; 85610; 85730; 87040; 87502; 93005; 94640; 94760; 96365; 96366; 96375; 99291